=== PATIENT | male | born 1980 | race Two or more races ===

== ENCOUNTER 2017-02-02 14:59 | Emergency (ER) | payer OTHER ==
--- NOTE | 2017-02-02 15:08 | ED Physician Chart ---
Chief Complaint/HPI - Patient Information Date Seen:: 02/02/17 Time Seen:: 15:05 Chief Complaint:: anxiety History of Present Illness:: 36-year-old male complains of acute, constant, moderate, generalized anxiety since this morning after he ran out of his Xanax. Typically uses Xanax to control his anxiety. Historian:: Patient Review:: Nurse's Note Reviewed Review of Systems - Review of Systems Other: Complete system review otherwise unremarkable except as noted in HPI. Past Medical History - Past Medical History Past Medical History: Other (anxiety) Family Medical History - Family Member Grandmother Hx Family Diabetes: Yes Physical Exam - Physical Examination Other:: INITIAL VITAL SIGNS: Reviewed by me GENERAL: Alert and interactive. No acute distress HEAD: Head is normocephalic and atraumatic EYES: EOMI. . No scleral icterus. No conjunctival injection ENT: Moist mucous membranes. NECK: Supple. No masses. Full range of motion RESPIRATORY: No tachypnea. Clear breath sounds bilaterally. No wheezing, rales, or rhonchi CV: Regular rate and rhythm. No murmurs, rubs, or gallops ABDOMEN: Soft, non-distended, non-tender. No guarding. No rebound. No masses. EXTREMITIES: No deformity. No cyanosis. No edema. Left upper extremity and long -arm cast. Good neurovascular status to the distal extremity. SKIN: Warm and dry. No obvious rashes. NEUROLOGIC: Alert and oriented. Face is symmetric. Speech is normal. Moves all extremities equally. Motor and sensory distally intact. ED Septic Shock - . Is Septic Shock (SBP<90, OR Lactate>4 mmol\L) present?: No Reassessment (Disposition) - Reassessment Reassessment:: The patient's blood pressure was elevated (>120/80) but appears stable without evidence of hypertensive emergency or urgency. The patient was counseled about the risks hypertension urged to pursue outpatient monitoring and therapy within a week with her primary care physician. Patient was researched on the [employer] database. Last 6 months of activity show 47 controlled substance prescriptions were filled including both narcotics and benzodiazepines. Most recently he filled a prescription for alprazolam on January 22, 2017. He does not seem to be using anyone provider in particular however looks as though he's shopping to different emergency departments and/or urgent care is abilities for his prescriptions. I discussed this with the patient who originally claimed that he was not taking any narcotics. As a courtesy we will treat the patient here for his anxiety however we are unable to provide any prescriptions given the high likelihood that he appears to be abusing both narcotics and benzodiazepines. Physical exam is essentially unremarkable for signs of anxiety. I've asked him to follow up with a primary care physician within one to 2 days. Also given him return to ER precautions. Patient says he understands and agrees with the plan. Reassessment Condition:: Improved - Diagnosis Diagnosis:: Anxiety, acute on chronic Elevated blood pressure without diagnosis of hypertension - Aftercare/Follow up Instructions Aftercare/Follow-Up Instructions:: Counseled pt regarding lab results/diagnosis & need follow up, Refer to Discharge Instructions - Patient Disposition Discharge/Transfer:: Home Time:: 15:21 Condition at Disposition:: Improved ED Discharge Plan - Patient Disposition Admit/Discharge/Transfer: PT DISCHARGED HOME Condition at Disposition: Improved Instructions: Anxiety and Panic Attacks, [id number]
== END 2017-02-02 15:40 | disposition home or self-care (01) ==
LOC: ER 14:59
DX: F41.9 Anxiety disorder, unspecified (principal); R03.0 Elevated blood-pressure reading, without diagnosis of hypertension; Z88.8 Allergy status to other drugs, medicaments and biological substances
CPT/HCPCS: Z7502

== ENCOUNTER 2018-04-06 22:25 | Emergency (ER) | payer MEDICAID, OTHER ==
--- NOTE | 2018-04-06 23:13 | ED Physician Chart ---
ED Chief Complaint/HPI - Patient Information Date Seen:: 04/06/18 Time Seen:: 23:13 Chief Complaint:: Depression and anxiety History of Present Illness:: 37 yo homeless male walked to ER stating that he was feeling anxious because he ran out of Xanax. He will see his psychiatrist in one week. He had been taking Xanax 2mg tid and celexa 20mg qhs for his anxiety and depression. He also had diarrhea for 1 day. Allergies:: Allergies Allergy/AdvReac Type Severity Reaction Status Date / Time aripiprazole [From Abilify] Allergy Verified 02/02/17 15:13 haloperidol [From Haldol] Allergy Verified 02/02/17 15:13 ED Review of Systems - Review of Systems General/Constitutional: No fever Skin: No skin lesions Head: No headache Eyes: No pain ENT: No nasal drainage Neck: No neck pain Cardio Vascular: No chest pain Pulmonary: No SOB GI: No nausea, No vomiting Musculoskeletal: No bone or joint pain Psychiatric: Depression, Anxiety Neurological: No focal symptoms ED Past Medical History - Past Medical History Past Medical History: No significant medical hx Social History: Non Smoker, No Alcohol, No Drug Use Surgical History: other (right thumb surgery, bone graft on right hip, right radius fracture) Psychiatricy History: Depression, Other (anxiety) Family Medical History - Family Member Grandmother Hx Family Diabetes: Yes ED Physical Exam - Physical Examination General/Constitutional: Awake Head: Atraumatic Eyes: PERRL Skin: No skin lesions ENMT: Nasal exam nl Neck: No nuchal rigidity Respiratory: No Wheeze/Rhonchi/Rales Cardio Vascular: RRR, No murmur, gallop, rubs, NL S1 S2 GI: No tenderness/rebounding/guarding Extremities: normal strength in all extremities Neuro/Psych: No focal deficits ED Labs/Radiology/EKG Results - Lab Results Results: Laboratory Last Values Urine Source RANDOM 04/07/18 05:30 Urine Color YELLOW 04/07/18 05:30 Urine Clarity CLEAR (CLEAR) 04/07/18 05:30 Urine pH 6.0 (4.6 - 8.0) 04/07/18 05:30 Ur Specific [place] 1.025 (1.005-1.030) 04/07/18 05:30 Urine Protein TRACE mg/dL (NEGATIVE) 04/07/18 05:30 Urine Glucose (UA) NEGATIVE mg/dL (NEGATIVE) 04/07/18 05:30 Urine Ketones NEGATIVE mg/dL (NEGATIVE) 04/07/18 05:30 Urine Blood NEGATIVE (NEGATIVE) 04/07/18 05:30 Urine Nitrate NEGATIVE (NEGATIVE) 04/07/18 05:30 Urine Bilirubin NEGATIVE (NEGATIVE) 04/07/18 05:30 Urine Urobilinogen 0.2 E.U./dL (0.2 - 1.0) 04/07/18 05:30 Ur Leukocyte Esterase NEGATIVE (NEGATIVE) 04/07/18 05:30 Urine RBC 0-2 /hpf (0-5) H 04/07/18 05:30 Urine WBC 0-2 /hpf (0-5) 04/07/18 05:30 Ur Epithelial Cells FEW /lpf (FEW) 04/07/18 05:30 Urine Bacteria OCCASIONAL /hpf (NONE SEEN) 04/07/18 05:30 Urine Mucus FEW /lpf (FEW) 04/07/18 05:30 Urine Opiates Screen NEGATIVE (NEGATIVE) 04/07/18 05:30 Urine Methadone Screen NEGATIVE (NEGATIVE) 04/07/18 05:30 Ur Barbiturates Screen NEGATIVE (NEGATIVE) 04/07/18 05:30 Ur Tricyclics Screen NEGATIVE (NEGATIVE) 04/07/18 05:30 Ur Phencyclidine Scrn NEGATIVE (NEGATIVE) 04/07/18 05:30 Amphetamines Screen NEGATIVE (NEGATIVE) 04/07/18 05:30 U Methamphetamines Scrn NEGATIVE (NEGATIVE) 04/07/18 05:30 U Benzodiazepines Scrn POSITIVE (NEGATIVE) H 04/07/18 05:30 U Cocaine Metab Screen NEGATIVE (NEGATIVE) 04/07/18 05:30 U Cannabinoids Screen POSITIVE (NEGATIVE) H 04/07/18 05:30 ED Assessment - Assessment General Assessment: Anxiety Substance abuse Assessment/Comments:: UA, urine drug screen Patient became calmer after slept the whole night in the ER CURES search showed patient recently had different benzodiazepines with different dosages from different providers D/c home ED Septic Shock - . Is Septic Shock (SBP<90, OR Lactate>4 mmol\L) present?: No ED Reassessment (Disposition) - Reassessment Reassessment Condition:: Improved - Patient Disposition Discharge/Transfer:: Home ED Discharge Plan - Patient Disposition Admit/Discharge/Transfer: PT DISCHARGED HOME Instructions: Anxiety and Panic Attacks, [id number] Additional Instructions: follow up with your doctor next week as discussed.
[2018-04-07 06:39] LABS: URINE MICROSCOPIC INDICATED? YES; URINE SOURCE RANDOM
[2018-04-07 07:13] LABS: URINE BILIRUBIN NEGATIVE (NEGATIVE); URINE BLOOD NEGATIVE (NEGATIVE); URINE CLARITY CLEAR (CLEAR); URINE COLOR YELLOW; URINE GLUCOSE (UA) NEGATIVE (NEGATIVE); URINE KETONE NEGATIVE (NEGATIVE); URINE LEUKOCYTE ESTERASE NEGATIVE (NEGATIVE); URINE NITRATE NEGATIVE (NEGATIVE); URINE PROTEIN TRACE mg/dL (NEGATIVE); URINE UROBILINOGEN 0.2 E.U./dL (0.2 - 1.0)
[2018-04-07 07:15] LABS: URINE BACTERIA OCCASIONAL /hpf (NONE SEEN); URINE EPITHELIAL CELLS FEW /lpf (FEW); URINE RBC 0-2 /hpf (0-5); URINE WBC 0-2 /hpf (0-5)
[2018-04-07 07:25] LABS: AMPHETAMINE URINE NEGATIVE (NEGATIVE); BARBITURATES URINE NEGATIVE (NEGATIVE); BENZODIAZEPINES QUAL URINE POSITIVE (NEGATIVE); CANNABINOID THC POSITIVE (NEGATIVE); COCAINE METABOLITE QUAL URINE NEGATIVE (NEGATIVE); METHADONE URINE NEGATIVE (NEGATIVE); METHAMPHETAMINES QUAL URINE NEGATIVE (NEGATIVE); OPIATES (MORPHINE) QUAL. URINE NEGATIVE (NEGATIVE); PHENCYCLIDINE (PCP) URINE NEGATIVE (NEGATIVE); TRICYCLICS (TCA) QUAL. URINE NEGATIVE (NEGATIVE)
== END 2018-04-07 07:05 | disposition home or self-care (01) ==
LOC: ER 22:25
DX: F41.8 Other specified anxiety disorders (principal); F19.10 Other psychoactive substance abuse, uncomplicated; Z88.8 Allergy status to other drugs, medicaments and biological substances
CPT/HCPCS: 80307; 81001-TC; Z7502